=== PATIENT | male | born 2000 | race Caucasian/White ===

== ENCOUNTER 2025-04-03 07:02 | Day surgery (SDC) | payer OTHER ==
[2025-04-03] MEDS ORDERED: SUGAMMADEX SODIUM 200 MG/2 ML VIAL ONE ×2 (08:22→10:05)
[2025-04-03] MEDS ORDERED: Rocuronium Bromide 10 MG/ML (10ML VIAL) ONE ×2 (08:22→10:05)
[2025-04-03] MEDS ORDERED: PROPOFOL 40 ML ONE (08:22)
[2025-04-03] MEDS ORDERED: Ondansetron PF 4 MG/2 ML Vial ONE ×2 (08:22→10:05)
[2025-04-03] MEDS ORDERED: Lidocaine 1% PF 5 ML VIAL ONE ×2 (08:22→10:05)
[2025-04-03] MEDS ORDERED: AFRIN NASAL MIST 15 ML BOT ONE (08:45)
[2025-04-03] MEDS ORDERED: Bacitracin 1 PK ONE (09:07)
[2025-04-03] MEDS ORDERED: Lidocaine 1% w/Epinephrine 1:200K 30 ML VIAL ONE (09:07)
[2025-04-03] MEDS ORDERED: Oxymetazoline HCl 0.05% (15 ML) ONE (10:08)
[2025-04-03] MEDS ORDERED: HYDROcodone/Acetaminophen 5/325 mg Tablet ONE (11:20)
== END 2025-04-03 12:23 | disposition home or self-care (01) ==
LOC: CSHSDC 07:02
PROVIDERS: ATTEND Specialist
PROC: 09TL8ZZ Resection of Nasal Turbinate, Via Natural or Artificial Opening Endoscopic (ICD-10-PCS; principal; 2025-04-03)
PROC: 09BM8ZZ Excision of Nasal Septum, Via Natural or Artificial Opening Endoscopic (ICD-10-PCS; principal; 2025-04-03)
DX: J34.2 Deviated nasal septum (principal); J34.3 Hypertrophy of nasal turbinates
CPT/HCPCS: J0169; J1100; J2405; J2704; J3010